=== PATIENT | female | born 1985 | race African-American/Black ===

== ENCOUNTER 2023-06-08 16:12 | Emergency (ER) | payer MEDICAID, OTHER ==
[~2023-06-08] VITALS: Ht 160 cm; Wt 70.0 kg
[2023-06-08 16:34] VITALS: O2SAT 99
[2023-06-08] MEDS ORDERED: RHO(D) IMMUNE GLOBULIN 300 MCG/SYR IM NR (17:49)
[2023-06-08] MEDS ORDERED: LACTATED RINGERS 1,000 ML IV SCH (18:00)
[2023-06-08 20:35] LABS: BASOPHILS % 0.4 % (0.0-2.0); EOSINOPHILS % 3.9 % (0.0-5.0); HEMATOCRIT. 31.3 % (36.0-48.0); HEMOGLOBIN. 10.7 g/dL (12.0-16.0); LYMPHOCYTES % 20.7 % (20.0-50.0); MEAN CORPUSCULAR HEMOGLOBIN 28.9 pg (28.0-32.0); MEAN CORPUSCULAR VOLUME 84.2 fL (81.0-99.0); MEAN PLATELET VOLUME 9.2 fl (7.4-10.4); MONOCYTES % 5.6 % (2.0-8.0); NEUTROPHILS % 69.4 % (40.0-76.0); PLATELET 204 x1000/uL (130-400); RED BLOOD CELL COUNT 3.72 mill/uL (4.2-5.4); RED CELL DISTRIBUTION WIDTH 14.6 % (11.6-14.6)
[2023-06-08 20:36] LABS: CHLORIDE 109 mEq/L (98-107); PARTIAL THROMBOPLASTIN TIME 30.5 sec (23.4-31.0)
[2023-06-08 20:56] LABS: CLARITY URINE TURBID (CLEAR); COLOR URINE RED (YELLOW); KETONES URINE NEGATIVE (NEGATIVE); LEUKOCYTE ESTERASE URINE 2+ (NEGATIVE); NITRITE URINE POSITIVE (NEGATIVE); OCCULT BLOOD URINE 3+ (NEGATIVE); PROTEIN URINE 2+ (NEGATIVE); SPECIFIC GRAVITY URINE 1.009 (1.005-1.030); UROBILINOGEN URINE 0.2 E.U./dL (0.2-1.0)
[2023-06-08 21:00] LABS: B-HCG QUANTITATIVE 1991 mIU/mL (<3)
[2023-06-08 21:08] LABS: HEPATITIS B SURFACE ANTIGEN NEGATIVE
[2023-06-08 21:20] LABS: *AMPHETAMINES SCREEN URINE NEGATIVE (NEGATIVE); *BARBITURATES SCREEN URINE NEGATIVE (NEGATIVE); *BENZODIAZEPINES SCREEN URINE NEGATIVE (NEGATIVE); *COCAINE SCREEN URINE NEGATIVE (NEGATIVE); CANNABINOID URINE SCREEN NEGATIVE (NEGATIVE); METHADONE URINE SCREEN NEGATIVE (NEGATIVE); OPIATES URINE SCREEN NEGATIVE (NEGATIVE); PHENCYCLIDINE URINE SCREEN NEGATIVE (NEGATIVE)
[2023-06-08] MEDS ORDERED: POTASSIUM CHLORIDE 20MEQ TABLET SR PO NR (21:30)
[2023-06-08] MEDS ORDERED: ACETAMINOPHEN 325MG TABLET PO ONE (23:15)
[2023-06-08 23:22] VITALS: BP 127/66; PULSE 60; RESP 17
[2023-06-08 23:42] VITALS: TEMP 98.6
== END 2023-06-08 18:20 | disposition home or self-care (01) ==
LOC: ER 16:12 → 8 EST LDRP 17:30 → UNDOADMOB 17:30 → ER 18:20 → UNDODISOB 18:30
DX: O46.92 Antepartum hemorrhage, unspecified, second trimester (principal); O03.39 Incomplete spontaneous abortion with other complications; O03.33 Metabolic disorder following incomplete spontaneous abortion; E87.6 Hypokalemia; Z3A.20 20 weeks gestation of pregnancy
CPT/HCPCS: 80053; 80305; 81003; 84702; 86703; 85025; 85610; 85730; 86850; 86900; 86901; 87340; 86592; 36415; 76801; 76817; 76857; 99285; 86762; Z7610 ×3; 96372; J7120